=== PATIENT | female | born 1960 | race Caucasian/White ===

== ENCOUNTER 2016-04-12 09:18 | Day surgery (SDC) | payer BC ==
[~2016-04-12 09:18] MED LIST: Lactated Ringers 1,000 ML IV SCH; Lidocaine 2% 5 ML SDV ONE; Midazolam 1 MG/ML 2 ML SDV ONE; Ondansetron 4 MG/2 ML SDV ONE; Propofol 200 MG/20 ML SDV ONE; fentaNYL 250 MCG/5 ML SDV ONE
--- NOTE | 2016-04-12 09:43 | PCM.PREANE ---
Preanesthetic Assessment - ANESTHESIA/TRANSFUSION/FAMILY HX Anesthesia/Transfusion History: Prior Anesthesia Type of Anesthesia Reaction: Denies: Allergy, Anesthesia Awareness, Excessive Somnolence, Excessive Nausea/Vomiting, Excessive Itching, Excessive Shivering, Malignant Hyperthermia, Malignant Hyperthermia, Family History, Pseudocholinesterase Deficiency, Pseudocholinesterase Deficiency, Family History of, Urinary Retention, Unknown, Other (see below) Family History of Anesthesia Reaction: No - REVIEW OF SYSTEMS Constitutional: Reports: no symptoms HUMANITIES DEPARTMENT CHAIR: Reports: no symptoms Respiratory: Reports: no symptoms Cardiovascular: Reports: no symptoms GI: Reports: no symptoms Other: Reports: none - PHYSICAL ASSESSMENT Height: 1.63 m Weight: 72.575 kg ASA Class: 2 Mental Status: alert & oriented x3 Airway Class: Mallampati = 2 Dentition: Reports: normal dentition Thyro-Mental Finger Breadths: 3 Mouth Opening Finger Breadths: 3 ROM/Head Extension: full Respiratory Status: lungs clear to auscultation bilaterally Cardiovascular Status: regular rate & rhythm - ALLERGIES Allergies/Adverse Reactions: Allergies Allergy/AdvReac Type Severity Reaction Status Date / Time No Known Allergies Allergy Verified 04/11/16 08:36 - BLOOD Blood Available: No - ANESTHESIA PLAN Preop Beta Denice: Yes Beta Denice: Metoprolol Beta-Denice Last Dose Date: 04/12/16 Anesthesia Type Planned: general anesthesia - ACKNOWLEDGEMENTS Pt an appropriate candidate for the planned anesthesia: Yes Alternatives and risks of anesthesia discussed w pt/guardian: Yes Pt/Guardian understands and agree with anesthesia plan: Yes PreAnesthesia Questionnaire HEENT History: Reports: Glaucoma, Other (see below) Other HEENT History: "low tension glaucoma", wears glasses Cardiovascular History: Reports: Hypertension 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: Reports: 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, Musculoskeletal History: Reports: Other (see below) Other Musculoskeletal History: occasional low back pain Endocrine/Metabolic History: Reports: Other (see below) Other Endocrine/Metabolic History: once was treated for hyperthyroidism - Past Surgical History Head Surgeries/Procedures: Reports: None - SUBSTANCE USE Smoking Status *Q: Never Smoker Second Hand Smoke Exposure: No Recreational Drug Use History: No - HOME MEDS Home Medications: Home Meds Cholecalciferol (Vitamin D3) [Vitamin D3] 50,000 unit PO ASDIRECTED 04/11/16 [ History] Hydrochlorothiazide 12.5 mg PO DAILY 04/11/16 [History] Metoprolol Succinate 25 mg PO DAILY 04/11/16 [History] PARoxetine [Paxil] 20 mg PO DAILY 04/11/16 [History] - CURRENT (IN HOUSE) MEDS Current Meds: Current Medications Lactated Ringer's (Ringers, Lactated) 1,000 mls @ 125 mls/hr IV ASDIRECTED ARSH Discontinued Medications Fentanyl (Sublimaze) Confirm Administered Dose 250 mcg .ROUTE .STK-MED ONE Stop: 04/12/16 07:27 Lidocaine (Xylocaine-Mpf 2%) Confirm Administered Dose 5 ml .ROUTE .STK-MED ONE Stop: 04/12/16 07:27 Midazolam HCl (Versed 1 Mg/Ml) Confirm Administered Dose 2 mg .ROUTE .STK-MED ONE Stop: 04/12/16 07:27 Ondansetron HCl (Zofran) Confirm Administered Dose 4 mg .ROUTE .STK-MED ONE Stop: 04/12/16 07:27 Propofol (Diprivan 20 Ml) Confirm Administered Dose 200 mg .ROUTE .STK-MED ONE Stop: 04/12/16 07:23
[2016-04-12] MEDS ORDERED: Ketorolac 30 MG/ML SDV ONE (10:31)
--- NOTE | 2016-04-12 11:04 | PCM.OPNOTE ---
- General Post-Op/Procedure Note Date of Surgery/Procedure: 04/12/16 Operative Procedure(s): operative hysteroscopy, polypectomy, fractional dilatation and curettage Findings: Uterus anteverted, sounds to 8 cm, excellent visulaization, fundus and endometrium appear atrophic. There is a 3mm elevated lesion at the lower uterine segment that was excised. Pre Op Diagnosis: postmenopausal bleeding Post-Op Diagnosis: Same Anesthesia Technique: General mask Primary Surgeon: Daniella Porter Anesthesia Provider: Suzan Do Print Decorator: Nadia Ferro Pathology: endometrial polyp, endometrial curettings, endocervical curettings. Fluid Replacement, Intraop: 1,000 EBL in mLs: 10 Drain/Tube Comments:: hysteroscopic deficit 70 ml Complications: None Known. Condition: Good
--- NOTE | 2016-04-12 11:06 | PCM.POSTAN ---
POST ANESTHESIA ASSESSMENT - MENTAL STATUS Mental Status: alert, oriented - RESPIRATORY Respiratory Status: respiratory rate WNL, airway patent, O2 saturation stable - CARDIOVASCULAR CV Status: pulse rate WNL, blood pressure stable - GASTROINTESTINAL GI Status: no symptoms - PAIN Pain Score: 0 - POST OP HYDRATION Hydration Status: adequate & stable
--- NOTE | 2016-04-12 12:12 | PCM48HPAN ---
Post Anesthesia Note - EVALUATION WITHIN 48HRS OF ANESTHETIC Vital Signs in Normal Range: Yes Patient Participated in Evaluation: Yes Respiratory Function Stable: Yes Airway Patent: Yes Cardiovascular Function Stable: Yes Hydration Status Stable: Yes Pain Control Satisfactory: Yes Nausea and Vomiting Control Satisfactory: Yes Mental Status Recovered: Yes
[2016-04-12 12:54] VITALS: BP 111/63
--- NOTE | 2016-04-12 19:05 | OR ---
SURGEON: Daniella Porter M.D. DATE OF PROCEDURE: 04/12/2016 PREOPERATIVE DIAGNOSIS: Postmenopausal bleeding. POSTOPERATIVE DIAGNOSES: Postmenopausal bleeding and uterine polyp. PROCEDURE: Hysteroscopic polypectomy, fractional D and C. ANESTHESIA: General mask. EBL: Minimal. FLUIDS: 1000 mL crystalloid IV. Hysteroscopic deficit of 70 mL normal saline. FINDINGS: Uterus anteverted, mobile, 8-week size. Excellent visualization of the uterine cavity. The endometrium appears primarily atrophic. Bilateral tubal ostia are identified. This smooth atrophic endometrium extends down to the lower uterine segment where there was a 3 mm polypoid lesion that was excised. There were no other lesions or abnormalities identified. COMPLICATIONS: None known. DISPOSITION: Stable to recovery. INDICATIONS: This is a 56-year-old female. She has a history of postmenopausal bleeding with one episode in the fall and a recurrent episode in March. She had an endometrial biopsy performed in the fall which showed atrophic endometrium. There was a suggestion of a uterine fibroid on her outside ultrasound, however, this was not confirmed on our ultrasound. Saline-enhanced ultrasound was performed. There were no discrete lesions. The endometrium appeared very poorly defined which could either be related to a very thin atrophic endometrium 1-2 mm in thickness or a larger region of endometrial type tissue of 11 mm in thickness, it was difficult to discern on ultrasound. Therefore, I did recommend proceeding with a hysteroscopic evaluation and D and C which was discussed including bleeding, infection, uterine perforation, injury to surrounding organs, fluid overload, and anesthesia risk. Understanding all these risks, she does desire to proceed. DESCRIPTION OF PROCEDURE: With the patient in the dorsal lithotomy position, under adequate general analgesia, the perineum and vagina were prepped with Betadine and draped in usual fashion for vaginal surgery. The bladder had been drained prior to the patient going to the OR. SCDs were in place and an appropriate time-out was held. Bimanual examination revealed an anteverted 8-week size uterus. Speculum was placed in the vagina. The cervix easily accepted a 5 mm hysteroscope. Using normal saline as a distending medium, there was excellent visualization of the uterine cavity with findings as noted above. This single 3 mm lesion in the lower uterine segment was undermined with hysteroscopic scissors and removed with a hysteroscopic grasper sent as a separate specimen. This being completed and with hemostasis identified, the hysteroscope was removed from the cavity. A sharp curettage of the endocervix was performed and then collected with Cytobrush and sent as a separate pathology specimen. Sharp curettage of the endometrium was then performed proceeding in a clockwise fashion starting at the 12 o'clock position, with a small amount of tissue obtained. All the instruments were removed from the vagina. Final sponge, needle, and instrument counts were reported as correct. There were no known complications. The patient was transferred to recovery in good condition. SASHA INIGUEZ /[id number]
== END 2016-04-12 12:55 | disposition home or self-care (01) ==
LOC: MW.SDS 09:18
PROVIDERS: ATTEND Obstetrics & Gynecology
PROC: 0UDB8ZZ Extraction of Endometrium, Via Natural or Artificial Opening Endoscopic (ICD-10-PCS; principal; 2016-04-12)
DX: N84.0 Polyp of corpus uteri (principal); I10 Essential (primary) hypertension; H40.1290 Low-tension glaucoma, unspecified eye, stage unspecified; Z79.899 Other long term (current) drug therapy
CPT/HCPCS: 36415; 58558; 85027; 88305; J1885; J2250; J2405; J3010; J7120; 00952; J2704

== ENCOUNTER 2016-08-23 06:44 | Day surgery (SDC) | payer BC ==
[2016-08-22 11:14] LABS: CHLORIDE,CL 105 mmol/L (98-110); SODIUM,NA 140 mmol/L (136-146)
[~2016-08-23 06:44] MED LIST changes: -Lidocaine 2% 5 ML SDV ONE; -Midazolam 1 MG/ML 2 ML SDV ONE; -Ondansetron 4 MG/2 ML SDV ONE; -Propofol 200 MG/20 ML SDV ONE; -fentaNYL 250 MCG/5 ML SDV ONE
[2016-08-23] MEDS ORDERED: Lactated Ringers 1,000 ML IV SCH (06:45)
[2016-08-23] MEDS ORDERED: Ondansetron 4 MG/2 ML SDV ONE (07:24)
[2016-08-23] MEDS ORDERED: Midazolam 1 MG/ML 2 ML SDV ONE (07:24)
[2016-08-23] MEDS ORDERED: Lidocaine 2% 5 ML SDV ONE (07:24)
[2016-08-23] MEDS ORDERED: Neostigmine Methylsulfate 1 MG/ML 5 ML Syringe ONE (07:24)
[2016-08-23] MEDS ORDERED: Propofol 200 MG/20 ML SDV ONE (07:24)
[2016-08-23] MEDS ORDERED: Rocuronium 10 MG/ML 10 ML Syringe ONE (07:24)
[2016-08-23] MEDS ORDERED: fentaNYL 250 MCG/5 ML SDV ONE (07:25)
[2016-08-23] MEDS ORDERED: Scopolamine 1.5 MG Transdermal Patch TRDERM PRN (07:27)
--- NOTE | 2016-08-23 07:31 | PCM.PREANE ---
Preanesthetic Assessment - Anesthesia/Transfusion/Family Hx Anesthesia History: Prior Anesthesia Without Reaction Family History of Anesthesia Reaction: No Transfusion History: No Prior Transfusion(s) - Review of Systems General: No Symptoms Pulmonary: No Symptoms Cardiovascular: No Symptoms Gastrointestinal: No symptoms Neurological: No Symptoms Other: Reports: None - Physical Assessment NPO Status Date: 08/22/16 NPO Status Time: 17:30 O2 Sat by Pulse Oximetry: 95 Respiratory Rate: 16 Vital Signs: Last Vital Signs Temp 37.2 C 08/23/16 06:47 Pulse 60 08/23/16 06:47 Resp 16 08/23/16 06:47 BP 123/80 08/23/16 06:47 Pulse Ox 95 08/23/16 06:47 Height: 1.63 m Weight: 72.575 kg ASA Class: 2 Mental Status: Alert & Oriented x3 Airway Class: Mallampati = 2 Dentition: Reports: Normal Dentition Lungs: Clear to auscultation, Normal respiratory effort Cardiovascular: Regular Rate, Regular Rhythm - Lab Values: Laboratory Last Values WBC 7.20 K/uL (4.0-11.0) 08/22/16 10:40 RBC 4.73 M/uL (4.30-5.90) 08/22/16 10:40 Hgb 14.2 g/dL (12.0-16.0) 08/22/16 10:40 Hct 42.9 % (36.0-46.0) 08/22/16 10:40 MCV 90.7 fL (80.0-98.0) 08/22/16 10:40 MCH 30.0 pg (27.0-32.0) 08/22/16 10:40 MCHC 33.1 g/dL (31.0-37.0) 08/22/16 10:40 RDW Std Deviation 45.2 fl (28.0-62.0) 08/22/16 10:40 RDW Coeff of Saúl 14 % (11.0-15.0) 08/22/16 10:40 Plt Count 285 K/uL (150-400) 08/22/16 10:40 MPV 9.50 fL (7.40-12.00) 08/22/16 10:40 Nucleated RBC % 0.0 /100WBC 08/22/16 10:40 Nucleated RBCs # 0 K/uL 08/22/16 10:40 Sodium 140 mmol/L (136-146) 08/22/16 10:40 Potassium 3.8 mmol/L (3.5-5.1) 08/22/16 10:40 Chloride 105 mmol/L (98-110) 08/22/16 10:40 Carbon Dioxide 28 mmol/L (21-31) 08/22/16 10:40 BUN 15 mg/dL (6.0-23.0) 08/22/16 10:40 Creatinine 0.8 mg/dL (0.6-1.5) 08/22/16 10:40 Est Cr Clr Drug Dosing 70.15 mL/min 08/22/16 10:40 Estimated GFR (MDRD) > 60.0 ml/min 08/22/16 10:40 Glucose 92 mg/dL (60-110) 08/22/16 10:40 Calcium 8.7 mg/dL (8.8-10.8) L 08/22/16 10:40 Blood Type O POSITIVE 08/22/16 10:40 Antibody Screen NEGATIVE 08/22/16 10:40 - Allergies Allergies/Adverse Reactions: Allergies Allergy/AdvReac Type Severity Reaction Status Date / Time No Known Allergies Allergy Verified 04/11/16 08:36 - Blood Blood Available: No - Anesthesia Plan Pre-Op Medication Ordered: None - Acknowledgements Anesthesia Type Planned: General Anesthesia Pt an Appropriate Candidate for the Planned Anesthesia: Yes Alternatives and Risks of Anesthesia Discussed w Pt/Guardian: Yes Pt/Guardian Understands and Agrees with Anesthesia Plan: Yes Additional Comments: took metopralol this am PreAnesthesia Questionnaire HEENT History: Reports: Glaucoma, Other (See Below) Other HEENT History: "low tension glaucoma", wears glasses Cardiovascular History: Reports: Hypertension Genitourinary History: Reports: Other (See Below) 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, Musculoskeletal History: Reports: Other (See Below) Other Musculoskeletal History: occasional low back pain Endocrine/Metabolic History: Reports: Other (See Below) Other Endocrine/Metabolic History: once was treated for hyperthyroidism - Past Surgical History Head Surgeries/Procedures: Reports: None Female Surgical History: Reports: Other (See Below) Other Female Surgeries/Procedures: hx hysteroscopy and fractional D&C on , abnormal postmenopausal bleeding - SUBSTANCE USE Smoking Status *Q: Never Smoker Second Hand Smoke Exposure: No Recreational Drug Use History: No - HOME MEDS Home Medications: Home Meds Hydrochlorothiazide 12.5 mg PO DAILY 04/11/16 [History] Metoprolol Succinate 25 mg PO DAILY 04/11/16 [History] PARoxetine [Paxil] 20 mg PO DAILY 04/11/16 [History] Erythromycin Base [Erythromycin 0.5% Ophth Oint] 1 applic EYEBOTH ASDIRECTED [History] Latanoprost [Xalatan 0.005% Ophth Soln] 1 drop EYEBOTH BEDTIME 08/18/16 [History ] - CURRENT (IN HOUSE) MEDS Current Meds: Current Medications Lactated Ringer's (Ringers, Lactated) 1,000 mls @ 125 mls/hr IV ASDIRECTED ARSH Last Admin: 08/23/16 07:08 Dose: 125 mls/hr Scopolamine (Transderm-Scop) 1.5 mg TRDERM Q72H PRN PRN Reason: Nausea/Vomiting Discontinued Medications Fentanyl (Sublimaze) Confirm Administered Dose 250 mcg .ROUTE .STK-MED ONE Stop: 08/23/16 07:26 Glycopyrrolate () Confirm Administered Dose 1 mg .ROUTE .STK-MED ONE Stop: 08/23/16 07:25 Lidocaine (Xylocaine-Mpf 2%) Confirm Administered Dose 5 ml .ROUTE .STK-MED ONE Stop: 08/23/16 07:25 Midazolam HCl (Versed 1 Mg/Ml) Confirm Administered Dose 2 mg .ROUTE .STK-MED ONE Stop: 08/23/16 07:25 Neostigmine Methylsulfate (Neostigmine) Confirm Administered Dose 5 mg .ROUTE .STK-MED ONE Stop: 08/23/16 07:25 Ondansetron HCl (Zofran) Confirm Administered Dose 4 mg .ROUTE .STK-MED ONE Stop: 08/23/16 07:25 Propofol (Diprivan 20 Ml) Confirm Administered Dose 200 mg .ROUTE .STK-MED ONE Stop: 08/23/16 07:25 Rocuronium Lambert (Zemuron) Confirm Administered Dose 100 mg .ROUTE .STK-MED ONE Stop: 08/23/16 07:25
[2016-08-23] MEDS ORDERED: ceFAZolin 1 GM Vial ONE (08:07)
[2016-08-23] MEDS ORDERED: Sodium Chloride 0.9% 20 ML ONE (08:07)
[2016-08-23] MEDS ORDERED: Dexamethasone 4 MG/ML 5 ML MDV ONE (08:09)
[2016-08-23] MEDS ORDERED: Fluorescein 5 ML Vial ONE (08:19)
[2016-08-23] MEDS ORDERED: ePHEDrine 50 MG/ML SDV ONE (08:20)
[2016-08-23] MEDS ORDERED: Furosemide 40 MG/4 ML VIAL ONE (08:21)
[2016-08-23] MEDS ORDERED: HYDROmorphone 2 MG/ML Syringe ONE (08:30)
[2016-08-23] MEDS ORDERED: fentaNYL 100 MCG/2 ML SDV IVPUSH PRN (08:32)
--- NOTE | 2016-08-23 09:26 | PCM.OPNOTE ---
- General Post-Op/Procedure Note Date of Surgery/Procedure: 08/23/16 Operative Procedure(s): total vaginal hysterectomy with bilateral salpingectomy and cystoscopy Findings: Uterus 8 weeks size, no significant prolapse, bilateral tubes and ovaries appear normal. There was copious flow from bilateral ureteral orifices at the time of cystoscopy with no evidence of trauma to the bladder mucosa. 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 Post-Op Diagnosis: Same Anesthesia Technique: General ET tube Primary Surgeon: Daniella Porter Secondary Surgeon: Lyla Garcia Anesthesia Provider: Ivan Latham Medical Services Coordinator: Ivan Byrd Pathology: uterus, right fallopian tube, left fallopian tube Fluid Replacement, Intraop: 2,500 Output, Urine Amount: 75 EBL in mLs: 100 Complications: None Condition: Good
[2016-08-23] MEDS ORDERED: Morphine 2 MG/ML Syringe IVPUSH PRN (09:27)
[2016-08-23] MEDS ORDERED: Promethazine 25 MG/ML SDV IM PRN (09:27)
[2016-08-23] MEDS ORDERED: Ketorolac 30 MG/ML SDV IVPUSH ONE (09:27)
[2016-08-23] MEDS ORDERED: Ketorolac 30 MG/ML SDV IVPUSH PRN (09:27)
[2016-08-23] MEDS ORDERED: Acetaminophen/oxyCODONE 325-5 MG Tab PO PRN (09:27)
[2016-08-23] MEDS ORDERED: Ondansetron 4 MG/2 ML SDV IVPUSH SCH ×2 (09:30→13:00)
[2016-08-23] MEDS ORDERED: Erythromycin Base 0.5% Ophth Oint 1 GM Tube EYEBOTH SCH (09:45)
[2016-08-23] MEDS ORDERED: Naloxone 0.4 MG/ML Syringe ONE (10:01)
--- NOTE | 2016-08-23 10:31 | PCM.SN ---
- Free Text/Narrative Note: Anesthesia Note: Called to PACU at approx 0940 for pt who went apnic after being repositioned in bed. Pt's Sat's are 89%, oral airway still in place and jaw lift being performed. Bag/mask used to assist breathing. Sat's immediately increase to 95% . After approx 2 min - changed over to simple mask and pt continues to breathe 8 -10 x's/min. Pt still not responding to stimuli -0.01 mg Narcan @ 1005 and again repeated @ 1007. RR increases to 11 x's/min. Pt still not responding to stimuli. EtCO2 initiated with a reading of 75 @ 1015. By 1021, pt awake and following commands. Will continue to monitor.
--- NOTE | 2016-08-23 10:53 | PCM.POSTAN ---
POST ANESTHESIA ASSESSMENT - MENTAL STATUS Mental Status: alert, oriented - RESPIRATORY Respiratory Status: respiratory rate WNL, airway patent, O2 saturation stable - CARDIOVASCULAR CV Status: pulse rate WNL, blood pressure stable - GASTROINTESTINAL GI Status: no symptoms - POST OP HYDRATION Hydration Status: adequate & stable
--- NOTE | 2016-08-23 13:57 | OR ---
SURGEON: Daniella Porter M.D. 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 PROCEDURE: Total vaginal hysterectomy with bilateral salpingectomy and cystoscopy. ASSISTANTS: Lyla Garcia M.D. ANESTHESIA: General endotracheal. FLUIDS: 2500 mL crystalloid. ESTIMATED BLOOD LOSS: 75 mL. URINE OUTPUT: 100 mL. FINDINGS: Uterus was 8 weeks' size. No significant prolapse. Bilateral tubes and ovaries appeared normal. There was copious flow of bright green urine from the bilateral ureteral orifices at the time of cystoscopy. There was also no evidence of any trauma to the bladder mucosa. BRIEF HISTORY: This is a 56-year-old female. She was initially evaluated with hysteroscopy and D and C. Pathology showed dysplasia of the endocervical curettings and also showed focal glandular atypia of the endocervical tissue and/or polyp in the lower uterine segment. I reviewed with her that the endocervical dysplasia cannot be followed by Pap. There is no treatment for the dysplasia other than hysterectomy as it is higher than a LEEP would reach. She would like to proceed with hysterectomy. Risks were discussed including bleeding, infection, injury to bowel, bladder, blood vessels, or other organs, risk of thromboembolic event, risk of anesthesia, risk of change in sexual function. Understanding all these risks, she does desire to proceed. Additionally, I did offer removal of the fallopian tubes for risk reduction for ovarian cancer. She would like them removed if it does not contribute significantly to the procedure. She is consented for a total vaginal hysterectomy with cystoscopy and possible bilateral salpingectomy. DESCRIPTION OF PROCEDURE: With the patient in dorsal lithotomy position, under adequate general endotracheal anesthesia, the abdomen was prepped with chlorhexidine and the vagina was prepped with Betadine and draped in the usual fashion for vaginal surgery. SCDs were in place. She had received 2 g of Ancef IV and an appropriate time-out was held. A bimanual examination revealed an anteverted 8- week size uterus with no pelvic masses. There was a 1st to 2nd degree descent. A weighted speculum was placed posteriorly. Right angle retractor was placed anteriorly. The Poe catheter had been placed and the bladder was empty. The cervix was grasped with a Rafael tenaculum and circumscribed using electrocautery. The posterior cul-de-sac was entered sharply. A Radha weighted speculum was placed posteriorly. The anterior cul-de-sac was entered sharply and the right angle retractor was placed into the anterior cul-de-sac. The uterosacral ligaments were cross clamped, cut, and ligated using a Tam ligature of 2-0 Polysorb. Two additional pedicles were taken on the right and the left incorporating the remainder of the cardinal ligament and the utero- ovarian ligament complexes. This was performed utilizing the Tam clamp and Tam ligature of 2-0 Polysorb. The utero-ovarian ligaments were retained. The fallopian tubes easily were brought into view. A gently curved Z clamp was placed across the mesosalpinx, which was then cut using Metzenbaum scissors and the pedicle was ligated using 2-0 Polysorb with a Tam type ligature. This being completed, both pedicles were inspected and were completely hemostatic, and therefore were released. There was a small area of bleeding associated with the left uterosacral ligament that was clamped and ligated. The bilateral uterosacral ligaments were reattached to the vaginal apices bilaterally. Using the retained sutures from the uterosacral ligaments, there was a small area of bleeding just above the right uterosacral ligament that was again ligated using a Tam ligature of 2-0 Polysorb. Careful inspection revealed no further bleeding. Over a time period of observation the pelvis being completely hemostatic, the cuff was closed with a running locked suture of 0 Polysorb. IV fluorescein and Lasix have been given. The Poe catheter was deflated and removed. Cystoscopy was performed. Using normal saline as distended medium and there was copious flow of bright green urine from the bilateral ureteral orifices, there was also no evidence of any trauma to the bladder mucosa. Therefore, the cystoscope was removed. Poe catheter was replaced. The vagina was inspected with a bivalve speculum and was hemostatic. Final sponge, needle, and instrument counts were reported as correct. There were no known complications. The patient was transferred to recovery in good condition. Pathology specimen is uterus, right tube, and left tube. SASHA / GEETHA /[id number]
[2016-08-23] MEDS ORDERED: Ondansetron 4 MG/2 ML SDV IVPUSH PRN (18:17)
--- NOTE | 2016-08-23 18:27 | PCM.SURGPN ---
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 Admission Diagnosis/Problem: Endometrial hyperplasia Functional Status: Reports: pain controlled - Review of Systems General: Reports: No Symptoms HEENT: Reports: no symptoms Pulmonary: Reports: no symptoms Cardiovascular: Reports: No Symptoms Gastrointestinal: Reports: No symptoms Genitourinary: Reports: no symptoms Musculoskeletal: Reports: no symptoms Skin: Reports: no symptoms Neurological: Reports: No Symptoms Psychiatric: Reports: no symptoms - Patient Data Vitals - most recent: Last Vital Signs Temp 36.8 C 08/23/16 15:48 Pulse 79 08/23/16 15:48 Resp 20 08/23/16 15:48 BP 124/67 08/23/16 15:48 Pulse Ox 91 L 08/23/16 15:48 Weight - most recent: 72.575 kg I&O - last 24 hours: Intake & Output 08/23/16 08/23/16 08/23/16 06:59 14:59 22:59 Intake Total 5400 150 Output Total 975 850 Balance 4425 -700 Med Orders - Current: Current Medications Erythromycin (Erythromycin 0.5% Ophth Oint) 0 gm EYEBOTH ASDIRECTED [facility] Fentanyl (Sublimaze) 50 mcg IVPUSH Q5M PRN PRN Reason: Pain (severe 7-10) Stop: 08/24/16 08:32 Hydrochlorothiazide (Hydrochlorothiazide) 12.5 mg PO DAILY [facility] Lactated Ringer's (Ringers, Lactated) 1,000 mls @ 125 mls/hr IV ASDIRECTED [facility] Last Admin: 08/23/16 07:08 Dose: 125 mls/hr Ketorolac Tromethamine (Toradol) 30 mg IVPUSH Q6H [facility] Stop: 08/28/16 09:27 Latanoprost (Xalatan 0.005% Ophth Soln) 0 ml EYEBOTH BEDTIME [facility] Metoprolol Succinate (Toprol Xl) 25 mg PO DAILY [facility] Morphine Sulfate (Morphine) 2 mg IVPUSH Q2H PRN PRN Reason: Pain (severe 7-10) Ondansetron HCl (Zofran) 4 mg IVPUSH Q6H PRN PRN Reason: Nausea Oxycodone/Acetaminophen (Percocet 325-5 Mg) 1 tab PO Q4H PRN PRN Reason: Pain (moderate 4-6) Paroxetine HCl (Paxil) 20 mg PO DAILY [facility] Promethazine HCl (Phenergan) 25 mg IM Q6H PRN PRN Reason: Nausea/Vomiting Scopolamine (Transderm-Scop) 1.5 mg TRDERM Q72H PRN PRN Reason: Nausea/Vomiting Last Admin: 08/23/16 07:32 Dose: 1.5 mg Discontinued Medications Cefazolin Sodium (Ancef) Confirm Administered Dose 2 gm .ROUTE .STK-MED ONE Stop: 08/23/16 08:08 Dexamethasone (Dexamethasone) Confirm Administered Dose 20 mg .ROUTE .STK-MED ONE Stop: 08/23/16 08:10 Ephedrine Sulfate (Ephedrine Sulfate) Confirm Administered Dose 50 mg .ROUTE .STK-MED ONE Stop: 08/23/16 08:21 Fentanyl (Sublimaze) Confirm Administered Dose 250 mcg .ROUTE .STK-MED ONE Stop: 08/23/16 07:26 Fluorescein Sodium (Ak-Fluor) Confirm Administered Dose 5 ml .ROUTE .STK-MED ONE Stop: 08/23/16 08:20 Furosemide (Lasix) Confirm Administered Dose 40 mg .ROUTE .STK-MED ONE Stop: 08/23/16 08:22 Glycopyrrolate () Confirm Administered Dose 1 mg .ROUTE .STK-MED ONE Stop: 08/23/16 07:25 Hydromorphone HCl (Dilaudid) Confirm Administered Dose 2 mg .ROUTE .STK-MED ONE Stop: 08/23/16 08:31 Sodium Chloride (Normal Saline) Confirm Administered Dose 20 mls @ as directed .ROUTE .STK-MED ONE Stop: 08/23/16 08:08 Ketorolac Tromethamine (Toradol) 30 mg IVPUSH ONETIME ONE Stop: 08/23/16 09:28 Last Admin: 08/23/16 14:04 Dose: Not Given Ketorolac Tromethamine (Toradol) 30 mg IVPUSH Q6H PRN PRN Reason: Pain (severe 7-10) Stop: 08/28/16 09:27 Lidocaine (Xylocaine-Mpf 2%) Confirm Administered Dose 5 ml .ROUTE .STK-MED ONE Stop: 08/23/16 07:25 Midazolam HCl (Versed 1 Mg/Ml) Confirm Administered Dose 2 mg .ROUTE .STK-MED ONE Stop: 08/23/16 07:25 Naloxone HCl (Narcan) Confirm Administered Dose 0.4 mg .ROUTE .STK-MED ONE Stop: 08/23/16 10:02 Last Admin: 08/23/16 11:45 Dose: Not Given Neostigmine Methylsulfate (Neostigmine) Confirm Administered Dose 5 mg .ROUTE .STK-MED ONE Stop: 08/23/16 07:25 Ondansetron HCl (Zofran) Confirm Administered Dose 4 mg .ROUTE .STK-MED ONE Stop: 08/23/16 07:25 Ondansetron HCl (Zofran) 4 mg IVPUSH Q6H [facility] Last Admin: 08/23/16 12:28 Dose: Not Given Ondansetron HCl (Zofran) 4 mg IVPUSH Q6H [facility] Last Admin: 08/23/16 12:44 Dose: 4 mg Propofol (Diprivan 20 Ml) Confirm Administered Dose 200 mg .ROUTE .STK-MED ONE Stop: 08/23/16 07:25 Rocuronium [place] (Zemuron) Confirm Administered Dose 100 mg .ROUTE .STK-MED ONE Stop: 08/23/16 07:25 - Exam Wound/Incisions: healing well General: alert, oriented HEENT: Pupils equal Neck: supple Lungs: Clear to auscultation, Normal respiratory effort Cardiovascular: Regular Rate, Regular Rhythm Abdomen: bowel sounds present, soft, no tenderness, no distension Extremities: no edema Skin: warm, dry, intact Neurological: no new focal deficit Psy/Mental Status: alert, normal affect, normal mood - Problem List & Annotations (1) Postmenopausal bleeding SNOMED Code(s): 27785556 Code(s): N95.0 - POSTMENOPAUSAL BLEEDING Status: Acute Current Visit: No - Problem List Review Problem List Initiated/Reviewed/Updated: Yes - My Orders Last 24 Hours: Active Orders 24 hr Category Date Time Status Patient Status [ADT] Routine ADT 08/23/16 09:27 Active Antiembolic Devices [RC] PER UNIT ROUTINE Care 08/23/16 09:28 Active Notify Provider Intake and Out [RC] ASDIRECTED Care 08/23/16 09:27 Active Notify Provider Vital Signs [RC] ASDIRECTED Care 08/23/16 09:27 Active RT Incentive Spirometry [RC] Care 08/23/16 09:27 Active Up With Assistance [RC] PER UNIT ROUTINE Care 08/23/16 09:27 Active Up ad Radha [RC] PER UNIT ROUTINE Care 08/23/16 09:27 Active Urinary Catheter Removal [RC] Per Unit Routine Care 08/23/16 09:27 Active Vital Signs [RC] Q4H Care 08/23/16 09:27 Active Regular Diet [DIET] Diet 08/23/16 Dinner Active BASIC METABOLIC PANEL,BMP [CHEM] AM Lab 08/24/16 09:30 Ordered CBC WITH AUTO DIFF [HEME] AM Lab 08/24/16 05:11 Ordered Acetaminophen/oxyCODONE [Percocet 325-5 MG] Med 08/23/16 09:27 Active 1 tab PO Q4H PRN Erythromycin Base [Erythromycin 0.5% Ophth Oint] Med 08/23/16 09:45 Active 0 gm EYEBOTH ASDIRECTED Hydrochlorothiazide Med 08/24/16 09:00 Active 12.5 mg PO DAILY Ketorolac [Toradol] Med 08/23/16 18:30 Ordered 30 mg IVPUSH Q6H Lactated Ringers [Ringers, Lactated] 1,000 ml Med 08/23/16 06:45 Active IV ASDIRECTED Latanoprost [Xalatan 0.005% Ophth Soln] Med 08/23/16 21:00 Active 0 ml EYEBOTH BEDTIME Metoprolol Succinate [Toprol XL] Med 08/24/16 09:00 Active 25 mg PO DAILY [facility] Med 08/23/16 09:27 Active 2 mg IVPUSH Q2H PRN Ondansetron [Zofran] Med 08/23/16 18:17 Ordered 4 mg IVPUSH Q6H PRN PARoxetine [Paxil] Med 08/24/16 09:00 Active 20 mg PO DAILY Promethazine [Phenergan] Med 08/23/16 09:27 Active 25 mg IM Q6H PRN Scopolamine [Transderm-Scop] Med 08/23/16 07:27 Active 1.5 mg TRDERM Q72H PRN fentaNYL [Sublimaze] Med 08/23/16 08:32 Active 50 mcg IVPUSH Q5M PRN Peripheral IV Discontinue [OM.PC] Routine Oth 08/23/16 09:27 Ordered Sequential Compression Device [OM.PC] Per Unit Routine Oth 08/23/16 09:27 Ordered Resuscitation Status Routine Resus Stat 08/23/16 09:27 Ordered Medication Orders Erythromycin (Erythromycin 0.5% Ophth Oint) 0 gm EYEBOTH ASDIRECTED [facility] Fentanyl (Sublimaze) 50 mcg IVPUSH Q5M PRN PRN Reason: Pain (severe 7-10) Stop: 08/24/16 08:32 Hydrochlorothiazide (Hydrochlorothiazide) 12.5 mg PO DAILY [facility] Lactated Ringer's (Ringers, Lactated) 1,000 mls @ 125 mls/hr IV ASDIRECTED [facility] Last Admin: 08/23/16 07:08 Dose: 125 mls/hr Ketorolac Tromethamine (Toradol) 30 mg IVPUSH Q6H [facility] Stop: 08/28/16 09:27 Latanoprost (Xalatan 0.005% Ophth Soln) 0 ml EYEBOTH BEDTIME [facility] Metoprolol Succinate (Toprol Xl) 25 mg PO DAILY [facility] Morphine Sulfate (Morphine) 2 mg IVPUSH Q2H PRN PRN Reason: Pain (severe 7-10) Ondansetron HCl (Zofran) 4 mg IVPUSH Q6H PRN PRN Reason: Nausea Oxycodone/Acetaminophen (Percocet 325-5 Mg) 1 tab PO Q4H PRN PRN Reason: Pain (moderate 4-6) Paroxetine HCl (Paxil) 20 mg PO DAILY [facility] Promethazine HCl (Phenergan) 25 mg IM Q6H PRN PRN Reason: Nausea/Vomiting Scopolamine (Transderm-Scop) 1.5 mg TRDERM Q72H PRN PRN Reason: Nausea/Vomiting Last Admin: 08/23/16 07:32 Dose: 1.5 mg - Assessment Assessment (Free Text/Narrative):: POD #0 after TVH, stable, minimal pain. Has not had any pain medicine since surgery. Reviewed that she had low respiratory rate vs. bronchospasm in the PACU thereofore Narcan was given by anesthesia. I referred any further questions to anesthesia. - Plan Plan (Free Text/Narrative):: May have catheter out, Toradol to be given tonight, then may attempt ambulation. Will limit narcotics. Reviewed operative findings.
[2016-08-23] MEDS: Ketorolac 30 MG/ML SDV IVPUSH SCH (18:42)
[2016-08-23] MEDS ORDERED: Latanoprost 0.005% Ophth Soln 2.5 ML Bottle EYEBOTH SCH (21:00)
[2016-08-24] MEDS: Ketorolac 30 MG/ML SDV IVPUSH SCH ×2 (00:15→06:21)
--- NOTE | 2016-08-24 03:48 | PCM48HPAN ---
Post Anesthesia Note - EVALUATION WITHIN 48HRS OF ANESTHETIC Vital Signs in Normal Range: Yes Patient Participated in Evaluation: No (Pt sleeping) Respiratory Function Stable: Yes Airway Patent: Yes Cardiovascular Function Stable: Yes Hydration Status Stable: Yes Pain Control Satisfactory: Yes Nausea and Vomiting Control Satisfactory: Yes Mental Status Recovered: Yes - COMMENTS/OBSERVATIONS Free Text/Narrative:: VSS. No apparent anesthesia complications.
[2016-08-24 05:29] LABS: CHLORIDE,CL 97 mmol/L (98-110); SODIUM,NA 131 mmol/L (136-146)
--- NOTE | 2016-08-24 07:16 | PCM.SURGPN ---
- General Info POD#: 1 Post-Op Diagnosis: dysplasia of uterus/cervix Functional Status: Reports: pain controlled, tolerating diet, ambulating, urinating - Review of Systems General: Reports: No Symptoms HEENT: Reports: no symptoms Pulmonary: Reports: no symptoms Cardiovascular: Reports: No Symptoms Gastrointestinal: Reports: No symptoms Genitourinary: Reports: no symptoms Musculoskeletal: Reports: no symptoms Skin: Reports: no symptoms Neurological: Reports: No Symptoms Psychiatric: Reports: no symptoms - Patient Data Vitals - most recent: Last Vital Signs Temp 37.1 C 08/24/16 04:00 Pulse 66 08/24/16 04:00 Resp 14 08/24/16 04:00 BP 98/52 L 08/24/16 04:00 Pulse Ox 93 L 08/24/16 04:00 Weight - most recent: 72.575 kg I&O - last 24 hours: Intake & Output 08/23/16 08/24/16 08/24/16 22:59 06:59 14:59 Intake Total 1050 300 Output Total 950 900 Balance 100 -600 Lab Results last 24 hrs: Laboratory Results - last 24 hr 08/24/16 08/24/16 Range/Units 04:45 04:45 WBC 18.24 H (4.0-11.0) K/uL RBC 3.72 L (4.30-5.90) M/uL Hgb 11.0 L (12.0-16.0) g/dL Hct 33.4 L (36.0-46.0) % MCV 89.8 (80.0-98.0) fL MCH 29.6 (27.0-32.0) pg MCHC 32.9 (31.0-37.0) g/dL RDW Std Deviation 43.4 (28.0-62.0) fl RDW Coeff of Saúl 13 (11.0-15.0) % Plt Count 235 (150-400) K/uL MPV 9.70 (7.40-12.00) fL Neut % (Auto) 83.7 H (48.0-80.0) % Lymph % (Auto) 9.2 L (16.0-40.0) % [place] % (Auto) 6.9 (0.0-15.0) % Eos % (Auto) 0.1 (0.0-7.0) % Baso % (Auto) 0.1 (0.0-1.5) % Neut # (Auto) 15.3 H (1.4-5.7) K/uL Lymph # (Auto) 1.7 (0.6-2.4) K/uL [place] # (Auto) 1.3 H (0.0-0.8) K/uL Eos # (Auto) 0.0 (0.0-0.7) K/uL Baso # (Auto) 0.0 (0.0-0.1) K/uL Nucleated RBC % 0.0 /100WBC Nucleated RBCs # 0 K/uL Sodium 131 L (136-146) mmol/L Potassium 4.1 (3.5-5.1) mmol/L Chloride 97 L (98-110) mmol/L Carbon Dioxide 26 (21-31) mmol/L BUN 8 (6.0-23.0) mg/dL Creatinine 0.7 (0.6-1.5) mg/dL Est Cr Clr Drug Dosing 80.17 mL/min Estimated GFR (MDRD) > 60.0 ml/min Glucose 104 (60-110) mg/dL Calcium 7.8 L (8.8-10.8) mg/dL Med Orders - Current: Current Medications Erythromycin (Erythromycin 0.5% Ophth Oint) 0 gm EYEBOTH ASDIRECTED [facility] Last Admin: 08/23/16 22:32 Dose: 1 applic Fentanyl (Sublimaze) 50 mcg IVPUSH Q5M PRN PRN Reason: Pain (severe 7-10) Stop: 08/24/16 08:32 Hydrochlorothiazide (Hydrochlorothiazide) 12.5 mg PO DAILY [facility] Ketorolac Tromethamine (Toradol) 30 mg IVPUSH Q6H [facility] Stop: 08/28/16 09:27 Last Admin: 08/24/16 06:21 Dose: 30 mg Latanoprost (Xalatan 0.005% Ophth Soln) 0 ml EYEBOTH BEDTIME [facility] Last Admin: 08/23/16 21:28 Dose: 1 drop Metoprolol Succinate (Toprol Xl) 25 mg PO DAILY [facility] Morphine Sulfate (Morphine) 2 mg IVPUSH Q2H PRN PRN Reason: Pain (severe 7-10) Ondansetron HCl (Zofran) 4 mg IVPUSH Q6H PRN PRN Reason: Nausea Oxycodone/Acetaminophen (Percocet 325-5 Mg) 1 tab PO Q4H PRN PRN Reason: Pain (moderate 4-6) Paroxetine HCl (Paxil) 20 mg PO DAILY [facility] Promethazine HCl (Phenergan) 25 mg IM Q6H PRN PRN Reason: Nausea/Vomiting Scopolamine (Transderm-Scop) 1.5 mg TRDERM Q72H PRN PRN Reason: Nausea/Vomiting Last Admin: 08/23/16 07:32 Dose: 1.5 mg Discontinued Medications Cefazolin Sodium (Ancef) Confirm Administered Dose 2 gm .ROUTE .STK-MED ONE Stop: 08/23/16 08:08 Dexamethasone (Dexamethasone) Confirm Administered Dose 20 mg .ROUTE .STK-MED ONE Stop: 08/23/16 08:10 Ephedrine Sulfate (Ephedrine Sulfate) Confirm Administered Dose 50 mg .ROUTE .STK-MED ONE Stop: 08/23/16 08:21 Fentanyl (Sublimaze) Confirm Administered Dose 250 mcg .ROUTE .STK-MED ONE Stop: 08/23/16 07:26 Fluorescein Sodium (Ak-Fluor) Confirm Administered Dose 5 ml .ROUTE .STK-MED ONE Stop: 08/23/16 08:20 Furosemide (Lasix) Confirm Administered Dose 40 mg .ROUTE .STK-MED ONE Stop: 08/23/16 08:22 Glycopyrrolate () Confirm Administered Dose 1 mg .ROUTE .STK-MED ONE Stop: 08/23/16 07:25 Hydromorphone HCl (Dilaudid) Confirm Administered Dose 2 mg .ROUTE .STK-MED ONE Stop: 08/23/16 08:31 Lactated Ringer's (Ringers, Lactated) 1,000 mls @ 125 mls/hr IV ASDIRECTED [facility] Last Admin: 08/23/16 07:08 Dose: 125 mls/hr Sodium Chloride (Normal Saline) Confirm Administered Dose 20 mls @ as directed .ROUTE .STK-MED ONE Stop: 08/23/16 08:08 Ketorolac Tromethamine (Toradol) 30 mg IVPUSH ONETIME ONE Stop: 08/23/16 09:28 Last Admin: 08/23/16 14:04 Dose: Not Given Ketorolac Tromethamine (Toradol) 30 mg IVPUSH Q6H PRN PRN Reason: Pain (severe 7-10) Stop: 08/28/16 09:27 Lidocaine (Xylocaine-Mpf 2%) Confirm Administered Dose 5 ml .ROUTE .STK-MED ONE Stop: 08/23/16 07:25 Midazolam HCl (Versed 1 Mg/Ml) Confirm Administered Dose 2 mg .ROUTE .STK-MED ONE Stop: 08/23/16 07:25 Naloxone HCl (Narcan) Confirm Administered Dose 0.4 mg .ROUTE .STK-MED ONE Stop: 08/23/16 10:02 Last Admin: 08/23/16 11:45 Dose: Not Given Neostigmine Methylsulfate (Neostigmine) Confirm Administered Dose 5 mg .ROUTE .STK-MED ONE Stop: 08/23/16 07:25 Ondansetron HCl (Zofran) Confirm Administered Dose 4 mg .ROUTE .STK-MED ONE Stop: 08/23/16 07:25 Ondansetron HCl (Zofran) 4 mg IVPUSH Q6H [facility] Last Admin: 08/23/16 12:28 Dose: Not Given Ondansetron HCl (Zofran) 4 mg IVPUSH Q6H [facility] Last Admin: 08/23/16 12:44 Dose: 4 mg Propofol (Diprivan 20 Ml) Confirm Administered Dose 200 mg .ROUTE .STK-MED ONE Stop: 08/23/16 07:25 Rocuronium [place] (Zemuron) Confirm Administered Dose 100 mg .ROUTE .STK-MED ONE Stop: 08/23/16 07:25 - Exam General: alert, oriented HEENT: Pupils equal Neck: supple Lungs: Clear to auscultation, Normal respiratory effort Cardiovascular: Regular Rate, Regular Rhythm Abdomen: bowel sounds present, soft, no tenderness, no distension Extremities: no edema Skin: warm, dry, intact Neurological: no new focal deficit Psy/Mental Status: alert, normal affect, normal mood - Problem List & Annotations (1) Postmenopausal bleeding SNOMED Code(s): 77650424 Code(s): N95.0 - POSTMENOPAUSAL BLEEDING Status: Acute Current Visit: No (2) Endometrial hyperplasia, unspecified SNOMED Code(s): 566711428 Code(s): N85.00 - ENDOMETRIAL HYPERPLASIA, UNSPECIFIED Status: Acute Current Visit: Yes - Problem List Review Problem List Initiated/Reviewed/Updated: Yes - My Orders Last 24 Hours: Active Orders 24 hr Category Date Time Status Patient Status [ADT] Routine ADT 08/23/16 09:27 Active Antiembolic Devices [RC] PER UNIT ROUTINE Care 08/23/16 09:28 Active Notify Provider Intake and Out [RC] ASDIRECTED Care 08/23/16 09:27 Active Notify Provider Vital Signs [RC] ASDIRECTED Care 08/23/16 09:27 Active RT Incentive Spirometry [RC] Care 08/23/16 09:27 Active Up With Assistance [RC] PER UNIT ROUTINE Care 08/23/16 09:27 Active Up ad Radha [RC] PER UNIT ROUTINE Care 08/23/16 09:27 Active Vital Signs [RC] Q4H Care 08/23/16 09:27 Active Regular Diet [DIET] Diet 08/23/16 Dinner Active Acetaminophen/oxyCODONE [Percocet 325-5 MG] Med 08/23/16 09:27 Active 1 tab PO Q4H PRN Erythromycin Base [Erythromycin 0.5% Ophth Oint] Med 08/23/16 09:45 Active 0 gm EYEBOTH ASDIRECTED Hydrochlorothiazide Med 08/24/16 09:00 Active 12.5 mg PO DAILY Ketorolac [Toradol] Med 08/23/16 18:30 Active 30 mg IVPUSH Q6H Latanoprost [Xalatan 0.005% Ophth Soln] Med 08/23/16 21:00 Active 0 ml EYEBOTH BEDTIME Metoprolol Succinate [Toprol XL] Med 08/24/16 09:00 Active 25 mg PO DAILY Morphine Med 08/23/16 09:27 Active 2 mg IVPUSH Q2H PRN Ondansetron [Zofran] Med 08/23/16 18:17 Active 4 mg IVPUSH Q6H PRN PARoxetine [Paxil] Med 08/24/16 09:00 Active 20 mg PO DAILY Promethazine [Phenergan] Med 08/23/16 09:27 Active 25 mg IM Q6H PRN Scopolamine [Transderm-Scop] Med 08/23/16 07:27 Active 1.5 mg TRDERM Q72H PRN fentaNYL [Sublimaze] Med 08/23/16 08:32 Active 50 mcg IVPUSH Q5M PRN Peripheral IV Discontinue [OM.PC] Routine Oth 08/23/16 09:27 Ordered Sequential Compression Device [OM.PC] Per Unit Routine Oth 08/23/16 09:27 Ordered Resuscitation Status Routine Resus Stat 08/23/16 09:27 Ordered Medication Orders Erythromycin (Erythromycin 0.5% Ophth Oint) 0 gm EYEBOTH ASDIRECTED [facility] Last Admin: 08/23/16 22:32 Dose: 1 applic Fentanyl (Sublimaze) 50 mcg IVPUSH Q5M PRN PRN Reason: Pain (severe 7-10) Stop: 08/24/16 08:32 Hydrochlorothiazide (Hydrochlorothiazide) 12.5 mg PO DAILY [facility] Ketorolac Tromethamine (Toradol) 30 mg IVPUSH Q6H [facility] Stop: 08/28/16 09:27 Last Admin: 08/24/16 06:21 Dose: 30 mg Admin: 08/24/16 00:15 Dose: 30 mg Admin: 08/23/16 18:42 Dose: 30 mg Latanoprost (Xalatan 0.005% Ophth Soln) 0 ml EYEBOTH BEDTIME [facility] Last Admin: 08/23/16 21:28 Dose: 1 drop Metoprolol Succinate (Toprol Xl) 25 mg PO DAILY [facility] Morphine Sulfate (Morphine) 2 mg IVPUSH Q2H PRN PRN Reason: Pain (severe 7-10) Ondansetron HCl (Zofran) 4 mg IVPUSH Q6H PRN PRN Reason: Nausea Oxycodone/Acetaminophen (Percocet 325-5 Mg) 1 tab PO Q4H PRN PRN Reason: Pain (moderate 4-6) Paroxetine HCl (Paxil) 20 mg PO DAILY [facility] Promethazine HCl (Phenergan) 25 mg IM Q6H PRN PRN Reason: Nausea/Vomiting Scopolamine (Transderm-Scop) 1.5 mg TRDERM Q72H PRN PRN Reason: Nausea/Vomiting Last Admin: 08/23/16 07:32 Dose: 1.5 mg - Assessment Assessment (Free Text/Narrative):: POD#1 after TVH, stable, pain is well controlled on Ketorolac only. Minimal vaginal discharge, ambulating, tolerating diet. Will dismiss to home today. - Plan Plan (Free Text/Narrative):: Discharge instructions reviewed, continue prior medications, precautions given.
[2016-08-24 08:38] VITALS: BP 101/59
[2016-08-24] MEDS ORDERED: Metoprolol Succinate 25 MG Tab.ER PO SCH (09:00)
[2016-08-24] MEDS ORDERED: PARoxetine 20 MG Tab PO SCH (09:00)
[2016-08-24] MEDS ORDERED: Hydrochlorothiazide 12.5 MG Cap PO SCH (09:00)
== END 2016-08-24 08:49 | disposition home or self-care (01) ==
LOC: MW.SDS 06:44 → MW.MS 09:22 → MW.SDS 08-24 08:49
PROVIDERS: ATTEND Obstetrics & Gynecology
DX: N80.0 Endometriosis of uterus (principal); D25.9 Leiomyoma of uterus, unspecified; I10 Essential (primary) hypertension; Z79.899 Other long term (current) drug therapy; Z98.890 Other specified postprocedural states
CPT/HCPCS: 36415; 58262; 80048; 85025; 85027; 86850; 86900; 86901; 88302; 88309; A9270; J0690; J1100; J1170; J1885; J1940; J2250; J2405; J3010; J7120; 00944; J2704

== ENCOUNTER 2023-06-01 09:45 | Observation (INO) | payer BC ==
[2023-06-01 09:57] LABS: BASOPHILS ABSOLUTE AUTO 0.05 K/uL (0.00-0.20); BASOPHILS PERCENT AUTO 0.6 % (0.0-1.0); EOSINOPHILS ABSOLUTE AUTO 0.02 K/uL (0.00-0.45); EOSINOPHILS PERCENT AUTO 0.2 % (0.0-6.0); HEMATOCRIT 40.5 % (37.0-47.0); IMMATURE GRAN ABSOLUTE AUTO 0.03 K/uL (0.00-0.05); IMMATURE GRAN PERCENT AUTO 0.3 % (0.0-0.4); LYMPHOCYTES ABSOLUTE AUTO 2.49 K/uL (1.00-4.80); LYMPHOCYTES PERCENT AUTO 28.1 % (24.0-44.0); MEAN CORPUSCULAR HEMOGLOBIN 30.6 pg (28.0-32.0); MEAN CORPUSCULAR HGB CONC 34.6 g/dL (32.0-36.0); MEAN CORPUSCULAR VOLUME 88.4 fL (83.0-99.0); MEAN PLATELET VOLUME 9.3 fL (9.4-12.3); MONOCYTES ABSOLUTE AUTO 1.49 K/uL (0.00-0.80); MONOCYTES PERCENT AUTO 16.8 % (0.0-8.0); NEUTROPHILS ABSOLUTE AUTO 4.79 K/uL (1.80-7.70); PLATELET COUNT,PLT 273 K/uL (150-400); RED BLOOD CELL COUNT 4.58 M/uL (4.10-5.30); WHITE BLOOD CELL COUNT,WBC 8.87 K/uL (3.9-11.3)
[2023-06-01] MEDS: Sodium Chloride 0.9% 2.5 ML Syringe FLUSH PRN (10:23)
[2023-06-01] MEDS: Sodium Chloride 0.9% 10 ML Syringe FLUSH PRN (10:23)
[2023-06-01 11:13] LABS: CORONAVIRUS COVID-19 NAA NEGATIVE (NEGATIVE); INFLUENZA A NAA POSITIVE (NEGATIVE); INFLUENZA B NAA NEGATIVE (NEGATIVE); RESPIRATORY SYNCYTIAL VIR NAA NEGATIVE (NEGATIVE)
[2023-06-01] MEDS: Sodium Chloride 0.9% 1,000 ML IV STA (11:17)
[2023-06-01 11:20] LABS: A/G RATIO 0.8 (0.9-1.6); BILIRUBIN TOTAL 0.3 mg/dL (0.2-1.0); CALCIUM 8.1 mg/dL (8.5-10.1); CARBON DIOXIDE,CO2 30.3 mmol/L (21.0-32.0); EST CRCL DRUG DOSING (CG) 51.02 mL/min; MAGNESIUM 1.8 mg/dL (1.8-2.4); POTASSIUM,K 3.4 mmol/L (3.5-5.1); PROTEIN TOTAL,TP 6.6 g/dL (6.4-8.2)
[2023-06-01 11:32] LABS: BILIRUBIN,URINE NEGATIVE (NEGATIVE); COLOR,URINE YELLOW; GLUCOSE,URINE NEGATIVE (NEGATIVE); KETONES,URINE NEGATIVE (NEGATIVE); LEUKOCYTE ESTERASE,URINE NEGATIVE (NEGATIVE); NITRITE,URINE NEGATIVE (NEGATIVE); OCCULT BLOOD,URINE MODERATE (NEGATIVE); PROTEIN,URINE NEGATIVE (NEGATIVE); UROBILINOGEN,URINE 0.2 EU/dL (<2.0)
[2023-06-01 11:42] LABS: APPEARANCE,URINE SLT CLOUDY; BACTERIA,URINE 2+ (NEGATIVE); EPITHELIAL CELLS,URINE MANY (NONE-FEW); WBC,URINE 0-1 (0-5/HPF)
[2023-06-01 11:43] LABS: MUCUS,URINE MODERATE (NONE-MOD)
[2023-06-01] MEDS: Iopamidol 755 MG/ML 500 ML Multipack Bottle IVPUSH STA (11:55)
[2023-06-01] MEDS: Potassium Chloride 20 MEQ Tab.ER PO ONE (11:56)
[2023-06-01] MEDS: Oseltamivir 75 MG Cap PO SCH (13:17)
[2023-06-01] MEDS ORDERED: Ondansetron 4 MG Tab.DIS PO PRN (15:15)
[2023-06-01] MEDS ORDERED: Acetaminophen 325 MG Tab PO PRN (15:15)
[2023-06-01] MEDS: Pantoprazole 40 MG Tab.CR PO SCH (16:01)
[2023-06-01] MEDS ORDERED: Benzonatate 100 MG Cap PO PRN (17:57)
[2023-06-01] MEDS: Latanoprost 0.005% Ophth Soln 2.5 ML Bottle EYEBOTH SCH (20:15)
[2023-06-01] MEDS: Erythromycin Base 0.5% Ophth Oint 1 GM Tube EYEBOTH SCH (20:15)
[2023-06-02 06:08] LABS: BASOPHILS ABSOLUTE AUTO 0.04 K/uL (0.00-0.20); BASOPHILS PERCENT AUTO 0.5 % (0.0-1.0); EOSINOPHILS ABSOLUTE AUTO 0.09 K/uL (0.00-0.45); EOSINOPHILS PERCENT AUTO 1.2 % (0.0-6.0); HEMATOCRIT 40.7 % (37.0-47.0); HEMOGLOBIN 13.7 g/dL (12.0-16.0); IMMATURE GRAN ABSOLUTE AUTO 0.06 K/uL (0.00-0.05); IMMATURE GRAN PERCENT AUTO 0.8 % (0.0-0.4); LYMPHOCYTES ABSOLUTE AUTO 2.95 K/uL (1.00-4.80); LYMPHOCYTES PERCENT AUTO 39.3 % (24.0-44.0); MEAN CORPUSCULAR HEMOGLOBIN 30.2 pg (28.0-32.0); MEAN CORPUSCULAR HGB CONC 33.7 g/dL (32.0-36.0); MEAN CORPUSCULAR VOLUME 89.6 fL (83.0-99.0); MEAN PLATELET VOLUME 9.5 fL (9.4-12.3); MONOCYTES ABSOLUTE AUTO 1.19 K/uL (0.00-0.80); MONOCYTES PERCENT AUTO 15.9 % (0.0-8.0); NEUTROPHILS ABSOLUTE AUTO 3.17 K/uL (1.80-7.70); NEUTROPHILS PERCENT AUTO 42.3 % (41.0-71.0); PLATELET COUNT,PLT 199 K/uL (150-400); RED BLOOD CELL COUNT 4.54 M/uL (4.10-5.30)
[2023-06-02 06:43] LABS: A/G RATIO 0.9 (0.9-1.6); ALBUMIN 3.1 g/dL (3.4-5.0); BILIRUBIN TOTAL 0.3 mg/dL (0.2-1.0); CALCIUM 8.1 mg/dL (8.5-10.1); CARBON DIOXIDE,CO2 28.3 mmol/L (21.0-32.0); CREATININE 0.6 mg/dL (0.6-1.0); EST CRCL DRUG DOSING (CG) 85.03 mL/min; POTASSIUM,K 4.1 mmol/L (3.5-5.1); PROTEIN TOTAL,TP 6.7 g/dL (6.4-8.2)
[2023-06-02] MEDS ORDERED: Oseltamivir 30 MG Cap PO SCH (09:00)
[2023-06-02 09:08] VITALS: BP 117/75; PULSE 73
[2023-06-02] MEDS: Timolol Maleate 0.5% Ophth Soln 5 ML Bottle EYEBOTH SCH (10:22)
== END 2023-06-02 13:00 | disposition home or self-care (01) ==
LOC: MW.ED 09:45 → MW.MS 12:45
PROVIDERS: ADMIT Internal Medicine; ATTEND Internal Medicine
DX: R55 Syncope and collapse (principal); I10 Essential (primary) hypertension; E05.90 Thyrotoxicosis, unspecified without thyrotoxic crisis or storm; Z79.899 Other long term (current) drug therapy
CPT/HCPCS: 0241U; 36415; 70450; 71045; 71275; 80053; 81001; 83735; 84484; 85025; 86850; 86900; 86901; 93005; 97161; A9270; J3490; J7030; Q9967; 93010; 96360; 99285; 99285-25; G0378